=== PATIENT | male | born 1970 | race Hispanic/Latino ===

== ENCOUNTER 2018-02-26 09:21 | Outpatient (CLI) | payer BC ==
--- NOTE | 2018-02-26 11:38 | RAD ---
THERE VIEWS CERVICAL SPINE: Date: 02-26-18 History: Evaluate cervical spine following surgery, cervical disc displacement. FINDINGS: Open mouth odontoid view demonstrates a normal appearing dens and C1-2 articulation. Anterior discect donna and fusion hardware is present at C5-6. There is no anterolisthesis or retrolisthesis. No signifi cant prevertebral soft tissue swelling. No radiographic evidence of hardware failure. IMPRESSION: Post-operative changes as above. POS: [facility]
== END 2018-02-26 09:22 | disposition home or self-care (01) ==
LOC: TBSIIMAG 09:21
PROVIDERS: ATTEND Neurological Surgery
DX: M50.20 Other cervical disc displacement, unspecified cervical region (principal); Z98.1 Arthrodesis status
CPT/HCPCS: 72040